=== PATIENT | female | born 1940 ===

== ENCOUNTER → 2025-04-27 08:14 | Outpatient (REF) | payer MEDICARE, OTHER, SELFPAY | LOC: HWRCS 08:14 | PROVIDERS: ATTENDING PHYSICIAN Internal Medicine Interventional Cardiology | DX: I10 Essential (primary) hypertension (principal) | CPT/HCPCS: 93306 ==

== ENCOUNTER 2025-05-03 09:03 | Day surgery (SDC) | payer MEDICARE, OTHER, SELFPAY ==
[2025-05-03] VITALS (9 sets, daily range): BP systolic 150–190; BP diastolic 57–164; BMI 29.3
[2025-05-03 09:37] LABS: Hematocrit 31.0 % (37.0-47.0); Hemoglobin 9.9 g/dL (12.0-16.0); Mean Corp Hgb Conc. 31.9 g/dL (33.0-37.0); Mean Corpuscular Volume 90.6 fL (81.0-99.0); Platelet Count 316 10^3/uL (130-400); Red Cell Dist. Width 14.5 % (11.5-14.5)
[2025-05-03 09:42] LABS: Glucose - Point of Care 97 mg/dl (70-99)
[2025-05-03] MEDS: NSS 204 ML IV (09:58)
[2025-05-03 10:07] LABS: Blood Urea Nitrogen 14 mg/dl (7-17); Calcium 10.1 mg/dl (8.4-10.2); Carbon Dioxide 29 mmol/L (22-30); Chloride 106 mmol/L (98-107); Estimated Creatinine Clearance 46 ml/min; Glucose 121 mg/dl (70-99); Potassium 4.4 mmol/L (3.5-5.1); Sodium 139 mmol/L (135-145); eGFR > 60.00
--- NOTE | 2025-05-03 14:05 | ITS.CL.CATH ---
Health Professor - Catheterization
Cardiac Catheterization
Procedure Report:
LEFT AND RIGHT HEART CATHETERIZATION
Date of Procedure: May 03, 2025
Referring: Dr. Asher Méndez
PROCEDURES:
1. Left heart catheterization, coronary angiogram.
2. Moderate sedation.
3. Right heart catheterization.
INDICATION: Concern for possible severe aortic stenosis
ACCESS: 1. Right radial artery, 6Fr. sheath, under US guidance.
2. Right common femoral vein, 6 Swedish sheath, under ultrasound guidance
HEMODYNAMICS : (mmHg)
RA (m) : 9
RV (s/d,m) : 31/, 8
PA (s/d, m) : , 20
PCWP (m) : 12
PA saturation: 66.6% on room air
AO saturation: 97.4% on room air
RA saturation: 66.0% on room air
Cardiac Output : 4.60 L/min
Cardiac Index : 2.84 L/min/m-2
Systemic vascular resistance: 2095 dsc^(-5)
Pulmonary vascular resistance: 2.60 dwyer unit
AO (s/d) : 192/85
LVEDP : 21
Mean invasive transaortic gradient of 13 to 15 mmHg, aortic valve area greater than 1 cm� consistent with mild aortic stenosis
Heart rate: 74 bpm
CORONARY FINDINGS
Dominance: Right
Left Main Trunk (LMT): Large caliber vessel that gives rise to the LAD and LCx branches and is free of angiographic disease.
Left Anterior Descending Artery (LAD): Large caliber vessel that gives off 2 major diagonal branches as it courses along the anterior inter-ventricular groove before wrapping around the cardiac apex. The LAD and its branches are free of
angiographic disease.
Left Circumflex Artery (LCx): Large caliber vessel that gives off 1 major obtuse marginal (OM) branch as it courses along the atrio-ventricular (AV) groove. The LCx and its branches are free of angiographic disease.
Right Coronary Artery (RCA): Large caliber dominant vessel that gives rise to the posterior descending artery (RPDA) and postero-lateral ventricular (RPLV) branches distally. Mid RCA has a smooth 30% stenosis.
SEDATION: 57 minutes of procedural sedation was utilized. IV Midazolam and IV Fentanyl were administered. An independent medical office professional instructor was present to assist with and help manage the patient's level of consciousness and physiologic status.
RADIATION SUMMARY: Fluoro Time (min): 4.8, Dose (mGy): 200, DAP (Gy.cm2) : 11.4
Closure Device: There were no immediate intra-procedural complications. The sheath was pulled in the quality assurance qa lab analyst and a vascular-band applied to the right wrist for radial artery hemostasis using the patent hemostasis technique. Manual pressure was
held over the right common femoral venous access site with successful hemostasis.
CONCLUSIONS
1. No obstructive coronary artery disease.
2. Mildly elevated right left-sided filling pressures with normal cardiac output. Significantly elevated systemic vascular resistance in setting of elevated blood pressure.
3. Mean invasive transaortic gradient of 13 to 15 mmHg, aortic valve area greater than 1 cm� consistent with mild aortic stenosis.
RECOMMENDATIONS
1. Wean radial band per protocol. Monitor right hand perfusion and for bleeding from the radial site following removal of the vascular-band following trans-radial access.
2. Continue aggressive medical therapy and risk factor modification for secondary CAD prevention. Continue surveillance for aortic valve disease.
3. Hydrate with normal saline to mitigate the risk of contrast-induced acute kidney injury.
4. Follow-up with Dr. Asher Méndez
Copy to: Dr. Asher Méndez
Mary Sanders MD, [facility], [facility]
[2025-05-03 14:10] LABS: Glucose - Point of Care 137 mg/dl (70-99)
[2025-05-03] MEDS: NSS 1000 IV (14:15)
== END 2025-05-03 16:30 | disposition home or self-care (01) ==
LOC: CATH 09:03
PROVIDERS: ATTENDING PHYSICIAN Internal Medicine Interventional Cardiology
DX: I35.0 Nonrheumatic aortic (valve) stenosis (principal); R03.0 Elevated blood-pressure reading, without diagnosis of hypertension; Z79.82 Long term (current) use of aspirin; Z79.899 Other long term (current) drug therapy; Z79.84 Long term (current) use of oral hypoglycemic drugs; Z79.4 Long term (current) use of insulin; Z79.890 Hormone replacement therapy
CPT/HCPCS: 99152; 99153; 80048; 82962; 85027; 93460; C1894; Q9967